=== PATIENT | female | born 1985 | race Caucasian/White ===

== ENCOUNTER → 2016-06-30 | Outpatient (CLI) | payer BC ==
[2016-06-30 10:40] LABS: BILIRUBIN,URINE NEGATIVE (NEG); GLUCOSE, URINE (UA) NEGATIVE (NEG); LEUKOCYTE ESTERASE ,URINE MODERATE (NEG); NITRATE,URINE NEGATIVE (NEG); OCCULT BLOOD,URINE LARGE (NEG); PH,URINE 6.5 (5.0-8.5); PROTEIN,URINE 100 mg/dl (NEG); UROBILINOGEN,URINE 0.2 mg/dL (0.2)
[2016-06-30 10:41] LABS: CLARITY,URINE CLOUDY (CLEAR); URINE SAMPLE TYPE CLEAN CATCH URINE
[2016-06-30 10:45] LABS: BACTERIA,URINE FEW; SQUAMOUS EPITHELIAL CELL,UR FEW; WBC,URINE 40-60
== END ==
LOC: MOB LAB 08:41
PROVIDERS: ATTEND Student in an Organized Health Care Education/Training Program
DX: R30.0 Dysuria (principal); R10.84 Generalized abdominal pain
CPT/HCPCS: 81001; 87088

== ENCOUNTER → 2016-10-11 | Outpatient (CLI) | payer BC | LOC: MOB LAB 15:56 | PROVIDERS: ATTEND Student in an Organized Health Care Education/Training Program | DX: N91.2 Amenorrhea, unspecified (principal); R11.0 Nausea | CPT/HCPCS: 36415; 84702 ==

== ENCOUNTER → 2016-10-20 | Outpatient (CLI) | payer BC | LOC: MOB LAB 14:13 | PROVIDERS: ATTEND Obstetrics & Gynecology | DX: N97.9 Female infertility, unspecified (principal); Z11.3 Encounter for screening for infections with a predominantly sexual mode of transmission | CPT/HCPCS: 87491; 87591 ==

== ENCOUNTER → 2016-10-29 | Outpatient (CLI) | payer BC | LOC: LAB 08:18 | PROVIDERS: ATTEND Obstetrics & Gynecology | DX: N97.9 Female infertility, unspecified (principal); Z86.39 Personal history of other endocrine, nutritional and metabolic disease | CPT/HCPCS: 36415; 83001; 83520; 84146; 84439; 84443 ==

== ENCOUNTER → 2016-11-02 | Outpatient (CLI) | payer BC ==
--- NOTE | 2016-11-02 11:58 | DI ---
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 Previous Exam: None at this facility. Findings: Multiple transvaginal and transabdominal grayscale and color Doppler sonographic images are obtained through the pelvis. The uterus appears normal measuring 7.0 x 2.6 x 3.8 cm with an endometrial stripe measuring 4 mm. The right ovary measured 2.4 x 2.0 x 2.8 cm and contains 24 separate follicles. The left ovary was also normal measuring 2.9 x 1.4 x 2.8 cm and contained 20 follicles. There was a trace amount of fluid noted within the cul-de-sac. The urinary bladder is unremarkable. Doppler flow is normal within both ovaries. Impression: 1. Normal pelvic ultrasound. 2. 24 right ovarian follicles. 3. 20 left ovarian follicles.
== END ==
LOC: US 08:02
PROVIDERS: ATTEND Obstetrics & Gynecology
DX: N97.9 Female infertility, unspecified (principal)
CPT/HCPCS: 76830; 76856

== ENCOUNTER → 2016-11-03 | Outpatient (CLI) | payer BC ==
[2016-11-03 09:22] LABS: CHOL/HDL RATIO 4.17 RATIO (0-4.0); LDL CHOLESTEROL,CALCULATED 122.8 mg/dL
== END ==
LOC: LAB 08:35
PROVIDERS: ATTEND Obstetrics & Gynecology
DX: E28.2 Polycystic ovarian syndrome (principal)
CPT/HCPCS: 36415; 80061; 82627; 82947; 83498; 84403

== ENCOUNTER → 2016-11-26 | Outpatient (CLI) | payer BC | LOC: LAB 09:00 | PROVIDERS: ATTEND Obstetrics & Gynecology | DX: N97.0 Female infertility associated with anovulation (principal) | CPT/HCPCS: 36415; 82670; 83001 ==

== ENCOUNTER → 2016-11-29 | Outpatient (CLI) | payer BC ==
--- NOTE | 2016-11-29 11:52 | DI ---
HYSTEROSALPINGOGRAM, 11/29/2016 10:09 AM: Clinical History: Primary anovulatory infertility. Previous Exam: None at this facility. A "time out" session verified the patient's name and date of . Informed signed consent was then obtained for this procedure. The patient was informed of benefits and risks, to include but not be li mited to: allergies to medications (skin preparation agents, and contrast agent), and infection. There was a small amount of blood at the cervical os and in the vaginal vault. The vaginal vault and cervical os were prepped with Betadine. The HSG catheter was introduced easily without complication. The balloon was inflated and Isovue 300 was injected under fluoroscopic control. A total volume of 5 mL was injected during the entire procedure. There is almost instantaneous filling of both uterine tu bes and they have a normal appearance. There is immediate spillage of contrast into the peritoneal ca vity on the right side, with contrast spilling on the left side it immediately thereafter. The balloo n catheter was partially deflated and additional contrast was injected to visualize the uterine cavit y. There is a filling defect toward the right uterine cornu probably representing some clotted blood. There is a persistent linear lucency that is positioned perpendicular to the direction of the cornea that may represent a partial septum or band. However, as noted above, there is prompt filling of the left uterine tube with spillage into the peritoneal cavity. Readin. Both uterine tubes have a normal appearance and are patent. 2. There is a thin lucent line in the left side of the uterus near the cornu and this may represent a partial septum or band. There is also a filling defect in the right cornu that probably represents clotted blood.
== END ==
LOC: RAD 10:02
PROVIDERS: ATTEND Obstetrics & Gynecology
DX: N97.0 Female infertility associated with anovulation (principal)
CPT/HCPCS: 74740

== ENCOUNTER → 2016-12-03 | Outpatient (CLI) | payer BC | LOC: LAB 08:47 | PROVIDERS: ATTEND Obstetrics & Gynecology | DX: N97.9 Female infertility, unspecified (principal) | CPT/HCPCS: 36415; 83001 ==

== ENCOUNTER → 2016-12-27 | Outpatient (CLI) | payer BC | LOC: MOB LAB 15:56 | PROVIDERS: ATTEND Obstetrics & Gynecology | DX: Z01.812 Encounter for preprocedural laboratory examination (principal) | CPT/HCPCS: 36415; 84702 ==

== ENCOUNTER 2016-12-29 08:58 | Day surgery (SDC) | payer BC ==
[~2016-12-29 08:58] MED LIST: LIDOCAINE W/ SODIUM BICARB 0.5 ML SYR ONE; Lactated Ringers 1,000 ML PRIMARY IV ONE
[2016-12-29 09:28] LABS: BILIRUBIN,URINE NEGATIVE (NEG); CLARITY,URINE CLEAR (CLEAR); COLOR,URINE YELLOW; GLUCOSE, URINE (UA) NEGATIVE (NEG); NITRATE,URINE NEGATIVE (NEG); OCCULT BLOOD,URINE LARGE (NEG); PH,URINE 5.5 (5.0-8.5); PROTEIN,URINE NEGATIVE (NEG); UROBILINOGEN,URINE 0.2 EU/dL (0.2)
[2016-12-29] MEDS ORDERED: MIDAZOLAM 5 MG/1 ML ONE (09:32)
[2016-12-29] MEDS ORDERED: fentaNYL Inj 100 MCG/2 ML VIAL ONE (09:32)
[2016-12-29] MEDS ORDERED: LIDOCAINE MPF 2% - 5 ML (20 MG/1 ML) ONE (09:32)
[2016-12-29] MEDS ORDERED: Sodium Chloride 0.9% vial 10 ML ONE (09:32)
[2016-12-29] MEDS ORDERED: KETOROLAC 30 MG/1 ML VIAL ONE ×2 (09:34→11:42)
[2016-12-29] MEDS ORDERED: DEXAMETHASONE PF 10 MG/1 ML VIAL ONE (09:34)
[2016-12-29 09:36] LABS: URINE SAMPLE TYPE CLEAN CATCH URINE
[2016-12-29 09:37] LABS: SQUAMOUS EPITHELIAL CELL,UR RARE; WBC,URINE 0-1
[2016-12-29 10:05] VITALS: RESP 16
[2016-12-29] MEDS ORDERED: Lactated Ringers 1,000 ML PRIMARY IV ONE (11:01)
[2016-12-29] MEDS ORDERED: HYDROcodone-APAP 5 MG -325 MG TABLET PO PRN (11:11)
[2016-12-29] MEDS ORDERED: NORMAL SALINE 10 ML SYRINGE FLUSH IVP PRN (11:11)
--- NOTE | 2016-12-29 11:22 | OB.OP.NOTE ---
Operative Report Anesthesia Type: General (With LMA) Anesthesia Provider: Jessy Au CRNA Surgery Date: 12/29/16 Preoperative Diagnosis: Infertility. Possible adhesion or band near left cornua with hysterosalpingogram Postoperative Diagnosis: No intrauterine adhesions or bands. Infertility Procedure: Diagnostic hysteroscopy. Dilation of cervix. No curettage of endometrial lining Estimated Blood Loss (mL): 5 Fluids: 1200 mL LR. 40 mL urine Complications: None apparent No evidence of uterine perforation Findings at Surgery: Normal uterine cavity. Both ostia visualized. No synechiae visualized, no band or adhesion near left cornua visualized Indications for the Procedure: The patient is a 31-year-old with secondary infertility. The patient has not had a term . She thinks she's had 1 miscarriage and hence 010 On hysterosalpingogram, there was a question of synechiae near the left cornua or a band of tissue near the left cornua. I spoke with a car dropper and we thought it best to do a hysteroscopy to confirm or deny the presence of the synechiae or band of tissue. Description of Procedure: After the risks, benefits, alternatives and indication of a hysteroscopy and possible operative hysteroscopy were discussed with the patient, consent forms were signed. Patient was brought to the operating room on the day of surgery. Patient was placed in the operating room table. Patient underwent general anesthesia with LMA. A timeout was completed and patient and procedures were identified. The patient was prepped and draped sterilely. The bladder was drained of 40 mL of urine. The cervix was dilated up to a 26 Kulwinder dilator after a weighted speculum was placed posterior and a Linares retractor was placed anteriorly and the single- tooth tenaculum was placed on the anterior lip of the cervix. The 0 hysteroscope with sheath was placed with direct visualization after the scope was white balanced. After a short time, I was able to visualize the endometrial lining. I was able to visualize the left and right ostia. There were no synechiae or bands of tissue noted near the left ostia or anywhere else. 8 photographs were taken of the ostia and endometrium and lower uterine segment A curettage of the lining of the endometrium was not completed since the patient had just finished her menses 2 days ago and since the patient did not have synechiae or a band of tissue, I did not want to disturb the lining anymore since the patient desires conception in . The procedure was completed. The single-tooth tenaculum was removed. There was some bleeding from the left site of the single-tooth tenaculum and one 4-0 Vicryl suture was placed and tied and allowed for hemostasis. The weighted speculum and Linares retractor was removed area The patient was awakened from her general endotracheal anesthesia and the patient was brought to the PACU in stable condition. Plan: The patient will be discharged home in a couple hours. The patient will weight 1 normal cycle and then I will prescribe Clomid again to determine if she will conceive.
[2016-12-29 13:25] VITALS: TEMP 97.5
== END 2016-12-29 12:35 | disposition home or self-care (01) ==
LOC: SDSC 08:58
PROVIDERS: ATTEND Obstetrics & Gynecology
DX: N97.9 Female infertility, unspecified (principal); Q51.9 Congenital malformation of uterus and cervix, unspecified
CPT/HCPCS: 58555; 81001; A4216; J1100; J1885; J2001; J2250; J2704; J3010; J7120